=== PATIENT | female | born 1990 | race Caucasian/White ===

== ENCOUNTER → 2022-02-20 11:00 | Outpatient (BNVA) | payer OTHER, SELFPAY | PROVIDERS: Visit Provider Internal Medicine | DX: S60.212A Contusion of left wrist, initial encounter (principal); Y00.XXXA Assault by blunt object, initial encounter | CPT/HCPCS: 99203 ==

== ENCOUNTER → 2022-02-25 13:05 | Outpatient (BNVA) | payer OTHER, SELFPAY | PROVIDERS: Visit Provider Internal Medicine | DX: S60.212D Contusion of left wrist, subsequent encounter (principal); Y00.XXXD Assault by blunt object, subsequent encounter; G56.22 Lesion of ulnar nerve, left upper limb | CPT/HCPCS: 99213 ==

== ENCOUNTER → 2022-03-04 07:42 | Outpatient (BNVA) | payer OTHER, SELFPAY | PROVIDERS: Visit Provider Internal Medicine | DX: S60.212D Contusion of left wrist, subsequent encounter (principal); Y00.XXXD Assault by blunt object, subsequent encounter; G56.22 Lesion of ulnar nerve, left upper limb | CPT/HCPCS: 99213 ==